=== PATIENT | female | born 1955 | race African-American/Black ===

== ENCOUNTER → 2016-08-22 | Outpatient (CLI) | payer MEDICARE ==
[2014-08-02 11:00] VITALS: BP 139/65
[~2016-08-22] MED LIST: ASPI325T4 PO; LISI10TA2 PO; OXYC-323 PO; SIMV20TA3 PO; TRAZ100T12 PO; non
--- NOTE | 2016-08-22 09:09 | RAD ---
EXAM: DIGITAL SCREEN BILAT W/CAD HISTORY: Screening. COMPARISON: 07/13/2015 and 06/16/2013. This study was interpreted with the benefit of Computerized Aided Detection (CAD). The breast parenchyma is primarily fatty replaced. Breast parenchyma level density A. FINDINGS: No dominant suspicious mass, suspicious microcalcifications, or architectural distortion is identified. IMPRESSION: No evidence of malignancy. BI-RADS CATEGORY: 1 NEGATIVE RECOMMENDED FOLLOW-UP: 12M 12 MONTH FOLLOW-UP PQRS compliance statement: Patient information was entered into a reminder system with a target due date for the next mammogram. Mammography is a sensitive method for finding small breast cancers, but it does not detect them all and is not a substitute for careful clinical examination. A negative mammogram does not negate a clinically suspicious finding and should not result in delay in biopsying a clinically suspicious abnormality. "Our facility is accredited by the [employer]ography [employer]."
== END | disposition home or self-care (01) ==
LOC: MAMMO 08:23
PROVIDERS: ATTEND Family Medicine
DX: Z12.31 Encounter for screening mammogram for malignant neoplasm of breast (principal)
CPT/HCPCS: G0202; 77067

== ENCOUNTER → 2016-11-12 | Outpatient (CLI) | payer MEDICARE ==
[2014-08-02 11:00] VITALS: BP 139/65
[~2016-11-12] MED LIST changes: -ASPI325T4 PO; +ASPI325T8 PO
--- NOTE | 2016-11-12 09:50 | RAD ---
Chest, 2 views, 11/12/2016: History: Suspected mold exposure Comparison is made to a study from 05/27/2012. The heart size is normal. There is mild tortuosity and calcific plaquing the thoracic aorta. The pulmonary vascularity is normal. No pulmonary infiltrates are seen. There is no evidence of pleural fluid. Minimal spurring is present in the spine. IMPRESSION: No acute cardiopulmonary abnormality is detected.
== END | disposition home or self-care (01) ==
LOC: RAD 08:25
PROVIDERS: ATTEND Family Medicine
DX: Z77.120 Contact with and (suspected) exposure to mold (toxic) (principal)
CPT/HCPCS: 71020

== ENCOUNTER 2017-03-24 11:48 | Emergency (ER) | payer BC, MEDICARE ==
[2017-03-24] MEDS ORDERED: KETOROLAC 30 MG/ML INJ. IV (12:15)
[2017-03-24 12:35] LABS: ADD MAN DIFF? NO
[2017-03-24] MEDS: KETOROLAC 30 MG/ML INJ. IV (12:41)
[2017-03-24 12:42] LABS: BASO % 1 % (0-3); EOS # 0.3 x10^3/uL (0.0-0.7); EOS % 3 % (0-3); HEMATOCRIT 43.4 % (36.0-47.0); HEMOGLOBIN 14.5 g/dL (12.0-15.5); LYMPH # 2.6 x10^3/uL (1.0-4.8); LYMPH % 31 % (24-48); MEAN CORPUSCULAR HEMOGLOBIN 30 pg (25-35); MEAN CORPUSCULAR HGB CONC 33 g/dL (31-37); MEAN CORPUSCULAR VOLUME 88 fL (79-100); MONO # 0.6 x10^3/uL (0.0-1.1); MONO % 7 % (0-9); NEUT # 4.8 x10^3uL (1.8-7.7); NEUT % 58 % (31-73); PLATELET COUNT 397 x10^3/uL (140-400); RED BLOOD COUNT 4.91 x10^6/uL (3.50-5.40); RED CELL DISTRIBUTION WIDTH 13.4 % (11.5-14.5); WHITE BLOOD COUNT 8.2 x10^3/uL (4.0-11.0)
[2017-03-24] MEDS: ORPHENADRINE CITRATE 60 MG/2 ML VIAL. IV (12:43)
[2017-03-24 12:53] LABS: ANION GAP 10 (6-14); BLOOD UREA NITROGEN 14 mg/dL (7-20); CALCIUM 9.1 mg/dL (8.5-10.1); CARBON DIOXIDE 28 mmol/L (21-32); CHLORIDE 104 mmol/L (98-107); CREATININE 0.8 mg/dL (0.6-1.0); GFR 87.7; GLUCOSE 125 mg/dL (70-99); POTASSIUM 4.1 mmol/L (3.5-5.1); SODIUM 142 mmol/L (136-145)
[2017-03-24] MEDS: oxyCODONE/APAP 10/325 1 TAB TABLET PO (13:24)
== END 2017-03-24 14:08 | disposition home or self-care (01) ==
LOC: ER 11:48
DX: G89.29 Other chronic pain (principal); M54.5 Low back pain; I10 Essential (primary) hypertension; E11.9 Type 2 diabetes mellitus without complications; F12.10 Cannabis abuse, uncomplicated; Z90.710 Acquired absence of both cervix and uterus
CPT/HCPCS: 36415; 72100; 80048; 85025; 96374; 96375; 99285-25; J1885; J2360

== ENCOUNTER → 2017-09-28 | Outpatient (CLI) | payer BC | END | disposition home or self-care (01) | LOC: MAMMO 09:32 | DX: Z12.31 Encounter for screening mammogram for malignant neoplasm of breast (principal); I10 Essential (primary) hypertension; E11.9 Type 2 diabetes mellitus without complications; E78.5 Hyperlipidemia, unspecified; E78.00 Pure hypercholesterolemia, unspecified | CPT/HCPCS: 77067 ==

== ENCOUNTER 2017-12-16 17:28 | Emergency (ER) | payer BC ==
[~2017-12-16] VITALS: Ht 154.9 cm; Wt 106.1 kg
[~2017-12-16 17:28] MED LIST changes: +TRAZ-86 PO; -TRAZ100T12 PO
[2017-12-16 17:54] LABS: BASO # 0.2 x10^3/uL (0.0-0.2); BASO % 1 % (0-3); EOS # 0.2 x10^3/uL (0.0-0.7); EOS % 2 % (0-3); HEMATOCRIT 39.7 % (36.0-47.0); HEMOGLOBIN 13.7 g/dL (12.0-15.5); LYMPH # 5.2 x10^3/uL (1.0-4.8); LYMPH % 35 % (24-48); MEAN CORPUSCULAR HEMOGLOBIN 30 pg (25-35); MEAN CORPUSCULAR HGB CONC 34 g/dL (31-37); MEAN CORPUSCULAR VOLUME 88 fL (79-100); MONO # 0.9 x10^3/uL (0.0-1.1); MONO % 6 % (0-9); NEUT # 8.3 x10^3uL (1.8-7.7); NEUT % 56 % (31-73); PLATELET COUNT 391 x10^3/uL (140-400); RED BLOOD COUNT 4.49 x10^6/uL (3.50-5.40); RED CELL DISTRIBUTION WIDTH 13.5 % (11.5-14.5); WHITE BLOOD COUNT 14.8 x10^3/uL (4.0-11.0)
[2017-12-16] MEDS ORDERED: PANTOPRAZOLE IV PUSH 40 MG VIAL. IVP ONE (18:00)
[2017-12-16] MEDS ORDERED: ASPIRIN 325 MG TABLET PO ONE (18:00)
[2017-12-16] MEDS ORDERED: LIDO:MAALOX 1:1 20 ML SINGLE DOSE. SWSW ONE (18:00)
[2017-12-16] MEDS ORDERED: ONDANSETRON PF 4 MG/2 ML VIAL. IV ONE (18:00)
[2017-12-16 18:13] LABS: CALCIUM 9.1 mg/dL (8.5-10.1); CREATININE 0.8 mg/dL (0.6-1.0); GFR 87.4; POTASSIUM 3.6 mmol/L (3.5-5.1)
[2017-12-16 18:19] LABS: ALBUMIN 3.7 g/dL (3.4-5.0); ALBUMIN/GLOBULIN RATIO 0.9 (1.0-1.7); MAGNESIUM 2.3 mg/dL (1.8-2.4); TOTAL BILIRUBIN 0.3 mg/dL (0.2-1.0); TOTAL PROTEIN 7.9 g/dL (6.4-8.2)
--- NOTE | 2017-12-16 18:46 | EKG ---
[facility] [address] [place] [id number] Test Date: 2017-12-16 Test Time: 18:42:48 Pat Name: EMILE ZHOU Department: Room: Gender: F Professor Of Geography: : 1955 Requested By: GILBERTO BAUTISTA Order Number: [id number] Reading MD: Measurements Intervals [place] Rate: 103 P: 0 LA: 118 QRS: 24 QRSD: 86 T: 37 QT: 344 QTc: 453 Interpretive Statements SINUS TACHYCARDIA QRS(T) CONTOUR ABNORMALITY CONSIDER ANTEROSEPTAL MYOCARDIAL DAMAGE POSSIBLY ABNORMAL ECG RI6.01 No previous ECG available for comparison
[2017-12-16 19:00] VITALS: BP 136/73
[2017-12-16 19:17] LABS: BILIRUBIN,URINE NEGATIVE (NEG); CLARITY,URINE CLEAR; COLOR,URINE YELLOW; NITRITE,URINE NEGATIVE (NEG); PH,URINE 6.5; PROTEIN,URINE NEGATIVE (NEG-TRACE); UROBILINOGEN,URINE 0.2 mg/dL (0.2 mg/dL)
[2017-12-16 19:24] LABS: BARBITURATES NEG (NEG); BENZODIAZEPINES NEG (NEG); CANNABINOIDS POS (NEG); COCAINE NEG (NEG); METHADONE NEG (NEG); OPIATES NEG (NEG); PHENCYCLIDINE NEG (NEG)
[2017-12-16 19:27] LABS: AMPHETAMINE/METHAMPHETAMINE NEG (NEG)
[2017-12-16 19:47] LABS: BACTERIA,URINE FEW /HPF (0-FEW); RBC,URINE 0 /HPF (0-2); SQUAMOUS EPITHELIAL CELL,UR MOD /LPF; WBC,URINE 0 /HPF (0-4)
[2017-12-16] MEDS ORDERED: ALPR0.25 PO (20:45)
--- NOTE | 2017-12-16 20:45 | PHYS DOC ---
Past Medical History Past Medical History: Bronchitis, Diabetes-Type II, Hypertension, Other Additional Past Medical Histor: Sleep Apnea Past Surgical History: Cholecystectomy, Hysterectomy, Tonsillectomy, Other Additional Past Surgical Histo: R)knee Alcohol Use: None Drug Use: Marijuana Adult General Chief Complaint Chief Complaint: CHEST PAIN HPI HPI Patient is a 62 year old female who presents with hx of HTN, DM II who presents today complaining of chest pain that has been going on for 20 years after his son , patient states the pain is been coming and going since then. She states the pain is 7 out of 10 described as sharp mostly of the epigastric region radiating to her back. Patient denies taking anything to relieve her pain. She states she believes she has anxiety. She states she is not on anything for anxiety. Review of Systems Review of Systems Constitutional: Denies fever or chills [] Eyes: Denies change in visual acuity, redness, or eye pain [] HENT: Denies nasal congestion or sore throat [] Respiratory: Denies cough or shortness of breath [] Cardiovascular: Reports chest pain GI: Denies abdominal pain, nausea, vomiting, bloody stools or diarrhea [] : Denies dysuria or hematuria [] Musculoskeletal: Denies back pain or joint pain [] Integument: Denies rash or skin lesions [] Neurologic: Denies headache, focal weakness or sensory changes [] Psych:reports anxiety. All other systems were reviewed and found to be within normal limits, except as documented in this note. Current Medications Current Medications Current Medications Medications (Trade) Dose Ordered Sig/Cole Start Time Stop Time Status Last Admin Dose Admin Aspirin (Bobby Aspirin) 325 mg 1X ONCE 12/16/17 18:00 12/16/17 18:01 DC 12/16/17 18:07 325 MG Multi-Ingredient Mouthwash/Gargle (Gi Cocktail) 20 ml 1X ONCE 12/16/17 18:00 12/16/17 18:01 DC 12/16/17 18:07 20 ML Ondansetron HCl (Zofran) 4 mg 1X ONCE 12/16/17 18:00 12/16/17 18:01 DC 12/16/17 18:07 4 MG Pantoprazole Sodium (PROTONIX VIAL for IV PUSH) 40 mg 1X ONCE 12/16/17 18:00 12/16/17 18:01 DC 12/16/17 18:07 40 MG Allergies Allergies Allergies Coded Allergies Type Severity Reaction Last Updated Verified atorvastatin Allergy Unknown 03/24/17 Yes Physical Exam Physical Exam Constitutional: Well developed, well nourished, no acute distress, non-toxic appearance. [] HENT: Normocephalic, atraumatic, bilateral external ears normal, oropharynx moist, no oral exudates, nose normal. [] Eyes: PERRLA, EOMI, conjunctiva normal, no discharge. [] Neck: Normal range of motion, no tenderness, supple, no stridor. [] Cardiovascular:Heart rate regular rhythm, no murmur [] Lungs & Thorax: Bilateral breath sounds clear to auscultation [] Abdomen: Bowel sounds normal, soft, no tenderness, no masses, no pulsatile masses. [] Skin: Warm, dry, no erythema, no rash. [] Back: No tenderness, no CVA tenderness. [] Extremities: No tenderness, no cyanosis, no clubbing, ROM intact, no edema. [] Neurologic: Alert and oriented X 3, normal motor function, normal sensory function, no focal deficits noted. [] Psychologic: Affect normal, judgement normal, mood normal. [] Current Patient Data Vital Signs Vital Signs Date Time Temp Pulse Resp B/P (MAP) Pulse Ox O2 Delivery O2 Flow Rate FiO2 12/16/17 18:00 75 26 122/71 (88) 96 Room Air 12/16/17 17:33 98.3 98.3 Lab Values Laboratory Tests Test 12/16/17 17:40 12/16/17 18:51 White Blood Count 14.8 x10^3/uL (4.0-11.0) H Red Blood Count 4.49 x10^6/uL (3.50-5.40) Hemoglobin 13.7 g/dL (12.0-15.5) Hematocrit 39.7 % (36.0-47.0) Mean Corpuscular Volume 88 fL (79-100) Mean Corpuscular Hemoglobin 30 pg (25-35) Mean Corpuscular Hemoglobin Concent 34 g/dL (31-37) Red Cell Distribution Width 13.5 % (11.5-14.5) Platelet Count 391 x10^3/uL (140-400) Neutrophils (%) (Auto) 56 % (31-73) Lymphocytes (%) (Auto) 35 % (24-48) Monocytes (%) (Auto) 6 % (0-9) Eosinophils (%) (Auto) 2 % (0-3) Basophils (%) (Auto) 1 % (0-3) Neutrophils # (Auto) 8.3 x10^3uL (1.8-7.7) H Lymphocytes # (Auto) 5.2 x10^3/uL (1.0-4.8) H Monocytes # (Auto) 0.9 x10^3/uL (0.0-1.1) Eosinophils # (Auto) 0.2 x10^3/uL (0.0-0.7) Basophils # (Auto) 0.2 x10^3/uL (0.0-0.2) D-Dimer (Princess) 0.48 ug/mlFEU (0.00-0.50) Sodium Level 144 mmol/L (136-145) Potassium Level 3.6 mmol/L (3.5-5.1) Chloride Level 103 mmol/L (98-107) Carbon Dioxide Level 32 mmol/L (21-32) Anion Gap 9 (6-14) Blood Urea Nitrogen 12 mg/dL (7-20) Creatinine 0.8 mg/dL (0.6-1.0) Estimated GFR (Cockcroft-Gault) 87.4 BUN/Creatinine Ratio 15 (6-20) Glucose Level 100 mg/dL (70-99) H Calcium Level 9.1 mg/dL (8.5-10.1) Magnesium Level 2.3 mg/dL (1.8-2.4) Total Bilirubin 0.3 mg/dL (0.2-1.0) Aspartate Amino Transferase (AST) 14 U/L (15-37) L Alanine Aminotransferase (ALT) 27 U/L (14-59) Alkaline Phosphatase 68 U/L (46-116) Troponin I Quantitative < 0.017 ng/mL (0.000-0.055) RZ-Akg-I-Type Natriuretic Peptide 147 pg/mL (0-124) H Total Protein 7.9 g/dL (6.4-8.2) Albumin 3.7 g/dL (3.4-5.0) Albumin/Globulin Ratio 0.9 (1.0-1.7) L Lipase 194 U/L (73-393) Thyroid Stimulating Hormone (TSH) 2.002 uIU/mL (0.358-3.74) Urine Collection Type Unknown Urine Color Yellow Urine Clarity Clear Urine pH 6.5 Urine Specific [place] 1.015 Urine Protein Negative mg/dL (NEG-TRACE) Urine Glucose (UA) Negative mg/dL (NEG) Urine Ketones (Stick) Negative mg/dL (NEG) Urine Blood Negative (NEG) Urine Nitrite Negative (NEG) Urine Bilirubin Negative (NEG) Urine Urobilinogen Dipstick 0.2 mg/dL (0.2 mg/dL) Urine Leukocyte Esterase Negative (NEG) Urine RBC 0 /HPF (0-2) Urine WBC 0 /HPF (0-4) Urine Squamous Epithelial Cells Mod /LPF Urine Bacteria Few /HPF (0-FEW) Urine Mucus Mod /LPF Urine Opiates Screen Neg (NEG) Urine Methadone Screen Neg (NEG) Urine Barbiturates Neg (NEG) Urine Phencyclidine Screen Neg (NEG) Urine Amphetamine/Methamphetamine Neg (NEG) Urine Benzodiazepines Screen Neg (NEG) Urine Cocaine Screen Neg (NEG) Urine Cannabinoids Screen Pos (NEG) Urine Ethyl Alcohol Neg (NEG) Laboratory Tests 12/16/17 17:40 Laboratory Tests 12/16/17 17:40 EKG EKG Interpreted by Dr. Larson sinus rhythm HR 83 no STEMI[] Radiology/Procedures Radiology/Procedures [] Course & Med Decision Making Course & Med Decision Making Pertinent Labs and Imaging studies reviewed. (See chart for details) This is a 62-year-old female patient presenting to the ED today with chest pain for 20 is worse in the last couple days. Cardiac workup is negative. Patient was also complaining of anxiety. She was given GI cocktail in the ED, given an aspirin. She states she is feeling better and would like to go home with something for anxiety. Gave her RX for Xanax 0.25 mg. Follow-up with PCP and hand almond blancher in the next 2-7 days. Heart score 3 Dragon Disclaimer Dragon Disclaimer This electronic medical record was generated, in whole or in part, using a voice recognition dictation system. Departure Departure Impression: Primary Impression: Chest pain Additional Impression: Anxiety Disposition: HOME, SELF-CARE Condition: STABLE Referrals: CHRISTY BARBOZA MD (PCP) follow up in 2 days ROSANNA JARAMILLO MD follow up in 2 days Patient Instructions: Chest Pain (Nonspecific)-Brief Additional Instructions: You were evaluated in the emergency room for chest pain and anxiety. Please take the prescribed medications as needed for anxiety. Follow-up with your own doctor in the next 2-3 days. Also follow-up with the hand almond blancher provided. Come back to the emergency room at any point symptoms worsen. Scripts Alprazolam (XANAX) 0.25 Mg Tablet 1 TAB PO TID PRN PRN for ANXIETY / AGITATION, #15 TAB Prov: GILBERTO BAUTISTA APRN 12/16/17 Problem Qualifiers Primary Impression: Chest pain Chest pain type: unspecified Qualified Codes: R07.9 - Chest pain, unspecified GILBERTO BAUTISTA APRN Dec 16, 2017 20:45
--- NOTE | 2017-12-16 22:46 | RAD ---
PORTABLE CHEST 1V Clinical Indication: ER PATIENT. MID-STERNAL ATRAUMATIC CHEST PAIN, PRODUCTIVE COUGH WITH YELLOW SPUTUM. Hx HTN, DIABETES, BRONCHITIS. Comparison: Two-view chest November 12, 2016. Findings: Tortuous and atherosclerotic thoracic aorta. Cardiac size is normal. Question tiny calcified granuloma left lung apex. Lungs are clear. There is no pneumothorax. No pleural effusion is appreciated. No acute bone abnormality. IMPRESSION: No acute cardiopulmonary process. Electronically signed by: Fernando Wright MD (12/16/2017 10:42 PM) [facility]
== END 2017-12-16 21:09 | disposition home or self-care (01) ==
LOC: ER 17:28
DX: R07.89 Other chest pain (principal); F41.9 Anxiety disorder, unspecified; R10.13 Epigastric pain; I10 Essential (primary) hypertension; E11.9 Type 2 diabetes mellitus without complications; Z90.49 Acquired absence of other specified parts of digestive tract; Z90.710 Acquired absence of both cervix and uterus; Z91.041 Radiographic dye allergy status
CPT/HCPCS: 36415; 71045; 80053; 80307; 81001; 83690; 83735; 83880; 84443; 84484; 85025; 85379; 93005; 96374; 96375; 99285; C9113; J2405; G0479

== ENCOUNTER → 2018-02-17 | Outpatient (CLI) | payer BC ==
[~2018-02-17] MED LIST changes: +ALPR0.25 PO; -OXYC-323 PO; +OXYC1TAB15 PO
--- NOTE | 2018-02-17 17:05 | RAD ---
Bilateral lower extremity arterial ultrasound, 02/17/2018: HISTORY: Leg cramps Duplex evaluation of the major arteries in both lower extremities was performed including grayscale, color-flow and spectral Doppler analysis. There are mild scattered atherosclerotic plaques bilaterally. The common femoral, superficial femoral and popliteal arteries demonstrate good triphasic waveforms bilaterally. No significant focal velocity acceleration is seen to suggest significant stenosis. Patent anterior tibial, posterior tibial and peroneal arteries are present in both lower legs, all demonstrating triphasic Doppler waveforms. The dorsalis pedis arteries in both feet are patent with triphasic Doppler waveforms. IMPRESSION: Mild scattered atherosclerotic plaquing with no duplex evidence of significant arterial occlusive disease in either lower extremity. Electronically signed by: Josef Murguia MD (02/17/2018 5:01 PM) [facility]
== END | disposition home or self-care (01) ==
LOC: US 14:06
PROVIDERS: ATTEND Podiatrist
DX: I70.203 Unspecified atherosclerosis of native arteries of extremities, bilateral legs (principal)
CPT/HCPCS: 93925

== ENCOUNTER 2018-06-10 12:13 | Emergency (ER) | payer BC ==
[~2018-06-10] VITALS: Ht 154.9 cm; Wt 106.1 kg
[2018-06-10 12:46] VITALS: BP 173/90
[2018-06-10] MEDS ORDERED: KETOROLAC 60 MG/2 ML VIAL. IM ONE (13:00)
--- NOTE | 2018-06-10 13:27 | PHYS DOC ---
Past Medical History Past Medical History: Bronchitis, Diabetes-Type II, Hypertension, Other Additional Past Medical Histor: Sleep Apnea Past Surgical History: Cholecystectomy, Hysterectomy, Tonsillectomy, Other Additional Past Surgical Histo: R)knee Alcohol Use: None Drug Use: Marijuana Adult General Chief Complaint Chief Complaint: Neck Pain [facility] HPI Patient is a 62 year old female who presents with left neck pain 2 days. The patient states that she woke up 2 days ago with this pain. She denies any injury. She denies headache or stiffness to her cervical spine. She has tried [id number] pain relievers with little relief. Review of Systems Review of Systems Constitutional: Denies fever or chills [] Respiratory: Denies cough or shortness of breath [] Cardiovascular: No additional information not addressed in HPI [] GI: Denies abdominal pain, nausea, vomiting, bloody stools or diarrhea [] : Denies dysuria or hematuria [] Musculoskeletal: See history of present illness Integument: Denies rash or skin lesions [] Neurologic: Denies headache, focal weakness or sensory changes [] Endocrine: Denies polyuria or polydipsia [] All other systems were reviewed and found to be within normal limits, except as documented in this note. Current Medications Current Medications Current Medications Medications (Trade) Dose Ordered Sig/Cole Start Time Stop Time Status Last Admin Dose Admin Ketorolac Tromethamine (Toradol Im) 60 mg 1X ONCE 06/10/18 13:00 06/10/18 13:01 DC 06/10/18 13:03 60 MG Allergies Allergies Allergies Coded Allergies Type Severity Reaction Last Updated Verified atorvastatin Allergy Unknown 03/24/17 Yes Physical Exam Physical Exam Constitutional: Well developed, well nourished, no acute distress, non-toxic appearance. [] HENT: Normocephalic, atraumatic, bilateral external ears normal, oropharynx moist, no oral exudates, nose normal. [] Eyes: PERRLA, EOMI, conjunctiva normal, no discharge. [] Neck: Normal range of motion, tenderness to left trapezius, supple, no stridor. [] Cardiovascular:Heart rate regular rhythm, no murmur [] Lungs & Thorax: Bilateral breath sounds clear to auscultation [] Abdomen: Bowel sounds normal, soft, no tenderness, no masses, no pulsatile masses. [] Skin: Warm, dry, no erythema, no rash. [] Back: No point spinal tenderness, no CVA tenderness. [] Extremities: No tenderness, no cyanosis, no clubbing, ROM intact, no edema. [] Neurologic: Alert and oriented X 3, normal motor function, normal sensory function, no focal deficits noted. [] Psychologic: Affect normal, judgement normal, mood normal. [] Current Patient Data Vital Signs Vital Signs Date Time Temp Pulse Resp B/P (MAP) Pulse Ox O2 Delivery O2 Flow Rate FiO2 06/10/18 12:46 98.2 91 20 173/90 (117) 99 Room Air 98.2 EKG EKG [] Radiology/Procedures Radiology/Procedures [] Course & Med Decision Making Course & Med Decision Making Pertinent Labs and Imaging studies reviewed. (See chart for details) [] Dragon Disclaimer Dragon Disclaimer This electronic medical record was generated, in whole or in part, using a voice recognition dictation system. Departure Departure Impression: Primary Impression: Trapezius muscle strain Disposition: HOME, SELF-CARE Condition: STABLE Referrals: CHRISTY BARBOZA MD (PCP) Patient Instructions: Muscle Strain Additional Instructions: You may use ibuprofen or Tylenol for pain control. Follow-up with your primary care provider in 3 days if not improving or return to the emergency department if worsening. JEANNA SANDOVAL APRN Jun 10, 2018 13:27
== END 2018-06-10 13:40 | disposition home or self-care (01) ==
LOC: ER 12:13
DX: S46.812A Strain of other muscles, fascia and tendons at shoulder and upper arm level, left arm, initial encounter (principal); I10 Essential (primary) hypertension; E11.9 Type 2 diabetes mellitus without complications; Z88.8 Allergy status to other drugs, medicaments and biological substances; X58.XXXA Exposure to other specified factors, initial encounter; Y93.89 Activity, other specified; Y92.89 Other specified places as the place of occurrence of the external cause; Y99.8 Other external cause status
CPT/HCPCS: 96372; 99283; J1885

== ENCOUNTER 2018-08-21 01:40 | Emergency (ER) | payer BC, SELFPAY ==
[~2018-08-21] VITALS: Ht 154.9 cm; Wt 107.5 kg
[2018-08-21] MEDS ORDERED: DEXAMETHASONE 4 MG TABLET PO ONE (02:15)
[2018-08-21] MEDS ORDERED: IPRATRPIUM/ALBUTEROL 0.5/2.5MG 3 ML NEBU. NEB ONE (02:15)
[2018-08-21] MEDS ORDERED: BENZ100C PO (03:13)
[2018-08-21] MEDS ORDERED: PRED20TA PO (03:13)
[2018-08-21] MEDS ORDERED: AZIT250T PO (03:13)
[2018-08-21] MEDS ORDERED: ALBU2.5V8 INH (03:13)
--- NOTE | 2018-08-21 03:13 | PHYS DOC ---
Past Medical History Past Medical History: Bronchitis, Diabetes-Type II, High Cholesterol, Hyp ertension, [place], Other Additional Past Medical Histor: Sleep Apnea Past Surgical History: Cholecystectomy, Hysterectomy, Tonsillectomy, Other Additional Past Surgical Histo: R)knee Alcohol Use: None Drug Use: Marijuana Adult General Chief Complaint Chief Complaint: COUGH HPI HPI Patient is a 62 year old [f__sex] who presents with [] Review of Systems Review of Systems Constitutional: Denies fever or chills [] Eyes: Denies change in visual acuity, redness, or eye pain [] HENT: Denies nasal congestion or sore throat [] Respiratory: Denies cough or shortness of breath [] Cardiovascular: No additional information not addressed in HPI [] GI: Denies abdominal pain, nausea, vomiting, bloody stools or diarrhea [] : Denies dysuria or hematuria [] Musculoskeletal: Denies back pain or joint pain [] Integument: Denies rash or skin lesions [] Neurologic: Denies headache, focal weakness or sensory changes [] Endocrine: Denies polyuria or polydipsia [] All other systems were reviewed and found to be within normal limits, except as documented in this note. Current Medications Current Medications Current Medications Medications (Trade) Dose Ordered Sig/Cole Start Time Stop Time Status Last Admin Dose Admin Albuterol/ Ipratropium (Duoneb) 3 ml 1X ONCE 08/21/18 02:15 08/21/18 02:16 DC 08/21/18 02:48 3 ML Dexamethasone (Decadron) 10 mg 1X ONCE 08/21/18 02:15 08/21/18 02:16 DC 08/21/18 02:46 10 MG Allergies Allergies Allergies Coded Allergies Type Severity Reaction Last Updated Verified atorvastatin Allergy Unknown 03/24/17 Yes Physical Exam Physical Exam Constitutional: Well developed, well nourished, no acute distress, non-toxic appearance. [] HENT: Normocephalic, atraumatic, bilateral external ears normal, oropharynx moist, no oral exudates, nose normal. [] Eyes: PERRLA, EOMI, conjunctiva normal, no discharge. [] Neck: Normal range of motion, no tenderness, supple, no stridor. [] Cardiovascular:Heart rate regular rhythm, no murmur [] Lungs & Thorax: Bilateral breath sounds clear to auscultation [] Abdomen: Bowel sounds normal, soft, no tenderness, no masses, no pulsatile masses. [] Skin: Warm, dry, no erythema, no rash. [] Back: No tenderness, no CVA tenderness. [] Extremities: No tenderness, no cyanosis, no clubbing, ROM intact, no edema. [] Neurologic: Alert and oriented X 3, normal motor function, normal sensory function, no focal deficits noted. [] Psychologic: Affect normal, judgement normal, mood normal. [] Current Patient Data Vital Signs Vital Signs Date Time Temp Pulse Resp B/P (MAP) Pulse Ox O2 Delivery O2 Flow Rate FiO2 08/21/18 02:49 99 Room Air 08/21/18 01:48 98.7 106 18 171/73 (105) 98.7 EKG EKG [] Radiology/Procedures Radiology/Procedures [] Course & Med Decision Making Course & Med Decision Making Pertinent Labs and Imaging studies reviewed. (See chart for details) [] Dragon Disclaimer Dragon Disclaimer This electronic medical record was generated, in whole or in part, using a voice recognition dictation system. Departure Departure Impression: Primary Impression: Bronchitis Additional Impression: Otalgia of both ears Disposition: HOME, SELF-CARE Condition: STABLE Referrals: CHRISTY BARBOZA MD (PCP) Patient Instructions: Acute Bronchitis, [id number], Otalgia Scripts Benzonatate (TESSALON PERLE) 100 Mg Capsule 1 CAP PO TID PRN for COUGH, #21 CAP Prov: CHRISTY HILL DO 08/21/18 Azithromycin (ZITHROMAX) 250 Mg Tablet 1 PKG PO UD, #6 TAB Take 2 tablets on day 1 and then 1 tablet each day for the next 4 days as directed Prov: CHRISTY HILL DO 08/21/18 Prednisone (PREDNISONE) 20 Mg Tablet 2 TAB PO DAILY, #8 TAB Start this prescription tomorrow, 08/22/18 Prov: CHRISTY HILL DO 08/21/18 Albuterol Sulfate (Proair Hfa) 8.5 Gm Hfa.aer.ad 1 PUFF INH PRN Q6HRS PRN for WHEEZING, #1 INHALER Prov: CHRISTY HILL DO 08/21/18 Problem Qualifiers CHRISTY HILL DO Aug 21, 2018 03:13
[2018-08-21 03:26] VITALS: BP 147/76
--- NOTE | 2018-08-21 08:06 | RAD ---
Chest, PA and Lateral: Technique: PA and lateral views of the chest were obtained. History: Cough. Comparison: 12/16/2017. Findings: The heart and pulmonary vasculature appear within normal limits. The lungs are clear. The pleural margins are clear. Impression: No acute chest process is seen. Electronically signed by: Andre Valle MD (08/21/2018 8:04 AM) [facility]
== END 2018-08-21 03:27 | disposition home or self-care (01) ==
LOC: ER 01:40
DX: J40 Bronchitis, not specified as acute or chronic (principal); H92.03 Otalgia, bilateral; E11.9 Type 2 diabetes mellitus without complications; E78.00 Pure hypercholesterolemia, unspecified; I25.2 Old myocardial infarction; I10 Essential (primary) hypertension; Z90.49 Acquired absence of other specified parts of digestive tract; Z90.710 Acquired absence of both cervix and uterus; Z90.89 Acquired absence of other organs; Z88.8 Allergy status to other drugs, medicaments and biological substances
CPT/HCPCS: 71046; 94640; 99284; J7620; J8540

== ENCOUNTER → 2018-10-11 | Outpatient (CLI) | payer OTHER ==
[~2018-10-11] MED LIST changes: +ALBU2.5V8 INH; +AZIT250T PO; +BENZ100C PO; +PRED20TA PO
--- NOTE | 2018-10-11 09:58 | RAD ---
Examination: 2 views of the right knee and 2 views of the lumbar spine HISTORY: History of osteoarthritis COMPARISON: Lumbar spine radiograph from 03/24/2017. FINDINGS: Moderate joint space loss identified in the medial, lateral, patellofemoral compartments. Moderate-sized osteophyte formation identified. The lumbar vertebral body heights are maintained. Moderate intervertebral disc height loss identified in the lumbar spine likely degeneration. L4 probable spondylolysis. IMPRESSION: 1. Moderate tricompartmental degenerative changes right knee. 2. Moderate degenerative changes lumbar spine. Electronically signed by: Andre Valle MD (10/11/2018 9:55 AM) [place] [id number]
== END | disposition home or self-care (01) ==
LOC: RAD 09:00
PROVIDERS: ATTEND Family Medicine
DX: M17.11 Unilateral primary osteoarthritis, right knee (principal); M47.816 Spondylosis without myelopathy or radiculopathy, lumbar region; M25.78 Osteophyte, vertebrae; E66.9 Obesity, unspecified; I10 Essential (primary) hypertension; E11.9 Type 2 diabetes mellitus without complications; E78.5 Hyperlipidemia, unspecified; G89.29 Other chronic pain
CPT/HCPCS: 72100; 73560

== ENCOUNTER → 2018-12-22 | Outpatient (CLI) | payer BC ==
[~2018-12-22] MED LIST changes: +SIMV20TA18 PO; -SIMV20TA3 PO
--- NOTE | 2018-12-23 18:21 | RAD ---
DATE: 12/22/2018 EXAM: MAMMO COLE SCREENING BILATERAL HISTORY: Routine screening COMPARISON: 09/28/2017, 08/22/2016 mammographic exams This study was interpreted with the benefit of Computerized Aided Detection (CAD). Breast Density: SCATTERED The breast parenchyma shows scattered fibroglandular densities. Breast parenchyma level B. FINDINGS: No suspicious mass, calcification, or distortion. IMPRESSION: Stable BI-RADS CATEGORY: 1 NEGATIVE RECOMMENDED FOLLOW-UP: 12M 12 MONTH FOLLOW-UP PQRS compliance statement: Patient information was entered into a reminder system with a target due date in one year for the next mammogram. Mammography is a sensitive method for finding small breast cancers, but it does not detect them all and is not a substitute for careful clinical examination. A negative mammogram does not negate a clinically suspicious finding and should not result in delay in biopsying a clinically suspicious abnormality. "Our facility is accredited by the [employer] Mammography [employer]."
== END | disposition home or self-care (01) ==
LOC: MAMMO 07:48
PROVIDERS: ATTEND Family Medicine
DX: N64.89 Other specified disorders of breast (principal); Z12.31 Encounter for screening mammogram for malignant neoplasm of breast
CPT/HCPCS: 77063; 77067

== ENCOUNTER → 2019-09-06 | Outpatient (CLI) | payer MEDICARE ==
[2019-07-07 11:14] VITALS: BP 157/83
[~2019-09-06] MED LIST changes: +NITR0.4T24 SL; +REGADENOSON 0.4 MG/5 ML DISP.SYRIN. IV ONE; +TRAZ-123 PO; -TRAZ-86 PO
--- NOTE | 2019-09-07 10:38 | RAD ---
MR#: [id number] Date of Study: 09/06/2019 Ordering Physician: DUSTIN RUEDA, Referring Physician: DEWAYNE DURON Tech: RT Teetee Cleary) (N) APPROVED REPORT Test Type: Pharmacological Stress Nurse/Tech: RT Casper ([place]) (N) Test Indications: chest pain 1 month ago Cardiac History: none Medications: see EHR Medical History: hypertension, diabetic Resting ECG: sinus rhythm Resting Heart Rate: 76 bpm Resting Blood Pressure: 136/74mmHg Nurse/Tech Notes Consent: The procedure was explained to the patient in lay terms. Informed consent was witnessed. Randal eout was entered into hhgregg. History and Stress Test performed by RT Madiha ([place]) (N) Pharm. Details Pharmacologic stress testing was performed using 0.4mg per 5ml of regadenoson given intravenously ove r 7-10 seconds. POST EXERCISE Reason for Termination: Infusion complete Max HR: 112 bpm Max Blood Pressure: 121/70mmHg INTERPRETATION Stress EKG Conclusion: Baseline EKG showed sinus rhythm. No ischemic changes at peak stress. No arr hythmias. Imaging Protocol IMAGE PROTOCOL: Rest Tc-99m/stress Tc-99m 2 days Rest: Stress: Viability: Radiopharm.Tc99m OjxxxipebXp69s Sestamibi Dose28.5mCi 31mCi Duration 15min. 15min. Img Date 09/06/2019 09/07/2019 Inj-Img Klvk26pms. 60min. Rest Admin Site:IV - Right AntecubitalAdministrator:RT Madiha (R)(N) Stress Admin Site: IV - Right AntecubitalAdministrator: RT Teetee Shirley)(N) STRESS DATA End Diast. Vol.71.0mlAv. Heart Rate86.0bpm End Syst. Vol.20.0mlCO Index BSA0.0L/min Myocardial Bdzp372.0gEject. Kwupymjn76.0% Stress Rates Pk. Fill Rate3.48EDV/secLVtime Pk. Fill 175.38msec Pk. Empty Rate4.62ESV/secLVtime Pk. Fldtl096.83msec 1/3 Pk. Fill1.10EDV/sec Stress Scores Regional WT0.00Summed WT0.00 Regional WM0.00Summed WM9.00 Study quality was good. Left Ventricular size was Normal at Rest and Stress. Lung uptake was . Left Ventricular ejection fraction is 71%. The rest and stress images show normal perfusion, normal contraction and thickening. LV Perf. Quant 17 Seg. SSS2.00 17 Seg. SRS8.00 17 Seg. SDS0.00 Stress Defect Extent (% LAD)0.00Rest Defect Extent (% LAD)3.10Rev. Defect Extent (% LAD)0.00 Stress Defect Extent (% LCX) 13.80Rest Defect Extent (% LCX)23.80Rev. Defect Extent (% LCX)0.00 Stress Defect Extent (% RCA)0.00Rest Defect Extent (% RCA)0.00Rev. Defect Extent (% RCA)0.00 Stress Defect Extent (% KATLIN)3.30Rest Defect Extent (% KATLIN)10.40Rev. Defect Extent (% KATLIN)0.00 Conclusion 1. Regadenoson cardioisotope stress test did not show any evidence of ischemia or infarct. 2. Normal left ventricular systolic function with ejection fraction calculated at 71%. 3. Low risk for cardiac events. Signed by : Kehinde Angeles, Electronically Approved : 09/07/2019 10:38:39
== END | disposition home or self-care (01) ==
LOC: NM 09:39
PROVIDERS: ATTEND Internal Medicine Cardiovascular Disease
DX: R07.9 Chest pain, unspecified (principal); I51.7 Cardiomegaly; I10 Essential (primary) hypertension; E11.9 Type 2 diabetes mellitus without complications
CPT/HCPCS: 78452; A9500; J2785

== ENCOUNTER → 2019-09-07 | Outpatient (CLI) | payer MEDICARE ==
[2019-07-07 11:14] VITALS: BP 157/83
[~2019-09-07] MED LIST changes: -REGADENOSON 0.4 MG/5 ML DISP.SYRIN. IV ONE
--- NOTE | 2019-09-07 10:13 | CARD ---
MR#: [id number] Date of Study: 09/07/2019 Ordering Physician: DUSTIN RUEDA, Referring Physician: DUSTIN RUEDA, Tech: Carmel Briggs APPROVED REPORT EXAM: Two-dimensional and M-mode echocardiogram with Doppler and color Doppler. Other Information Quality : AverageHR: 92bpm Technically limited study due to body habitus. INDICATION Chest Pain RISK FACTORS Hypertension Diabetes 2D DIMENSIONS Left Atrium(2D)2.8 (1.6-4.0cm)IVSd1.2 (0.7-1.1cm) Aortic Root(2D)2.8 (2.0-3.7cm)LVDd4.3 (3.9-5.9cm) LVOT Diameter2.2 (1.8-2.4cm)PWd1.2 (0.7-1.1cm) LVDs2.5 (2.5-4.0cm)FS (%) 41.1 % SV58.8 mlLVEF(%)72.3 (>50%) Aortic Valve AoV Peak Gato.145.6cm/sAoV VTI29.7cm AO Peak GR.8.5mmHgLVOT Peak Gato.123.2cm/s LVOT VTI 21.72cmAO Mean GR.5mmHg DESHAUN (VMAX)2.43lc2SCD (VTI)2.89cm2 Mitral Valve MV E Wvynpzna54.4cm/sMV A Klfoxvur18.9cm/s MV E Mean Gr.2mmHgE/A Ratio0.7 TDI E/Lateral E'6.4E/Medial E'9.0 Pulmonary Valve PV Peak Isezwylc564.6cm/sPV Peak Grad.5mmHg Tricuspid Valve TR P. Amamprld386yd/sRAP HGLSNZEQ7nmSz TR Peak Gr.96tiMoLAGD40fqYo Pulmonary Vein S1 Mrxlzuug32.2cm/sD2 Czzeltfq99.1cm/s PVa [id number] LEFT VENTRICLE The left ventricle is normal size. There is mild concentric left ventricular hypertrophy. The left ve ntricular systolic function is normal. The Ejection Fraction is 60-65%. There is normal LV segmental wall motion. Transmitral Doppler flow pattern is Grade I-abnormal relaxation pattern. RIGHT VENTRICLE The right ventricle is normal size. There is normal right ventricular wall thickness. The right ventr icular systolic function is normal. ATRIA The left atrium size is normal. The right atrium size is normal. The interatrial septum is intact wit h no evidence for an atrial septal defect or patent foramen ovale as noted on 2-D or Doppler imaging. AORTIC VALVE The aortic valve is calcified but opens well. Doppler and Color Flow revealed no significant aortic r egurgitation. There is no significant aortic valvular stenosis. MITRAL VALVE The mitral valve is normal in structure and function. There is no evidence of mitral valve prolapse. There is no mitral valve stenosis. Doppler and Color-flow revealed trace mitral regurgitation. TRICUSPID VALVE The tricuspid valve is normal in structure and function. Doppler and Color Flow revealed trace tricus pid regurgitation with an estimated PAP of 25 mmHg. There is no tricuspid valve stenosis. PULMONIC VALVE The pulmonic valve is not well visualized. Doppler and Color Flow revealed trace pulmonic valvular re gurgitation. GREAT VESSELS The aortic root is normal in size. The ascending aorta is normal in size. The IVC is normal in size a nd collapses >50% with inspiration. PERICARDIAL EFFUSION There is no evidence of significant pericardial effusion. Critical Notification Critical Value: No <Conclusion> The left ventricular systolic function is normal. The Ejection Fraction is 60-65%. There is normal LV segmental wall motion. Transmitral Doppler flow pattern is Grade I-abnormal relaxation pattern. Trace mitral regurgitation. Trace tricuspid regurgitation with an estimated PAP of 25 mmHg. There is no evidence of significant pericardial effusion. Signed by : Kehinde Angeles, Electronically Approved : 09/07/2019 10:12:54
== END ==
LOC: ECHO 07:55
PROVIDERS: ATTEND Internal Medicine Cardiovascular Disease
DX: I35.8 Other nonrheumatic aortic valve disorders (principal)
CPT/HCPCS: 93017; 93306

== ENCOUNTER → 2019-12-26 | Outpatient (CLI) | payer BC, MEDICARE ==
[2019-07-07 11:14] VITALS: BP 157/83
--- NOTE | 2019-12-27 17:02 | RAD ---
BILATERAL SCREENING MAMMOGRAM, 3-D History: Routine screening. Comparison: 12/22/2018, 09/28/2017, 08/22/2016, 07/13/2015. Technique: MLO and CC digital tomosynthesis (3D) images obtained. Radiologist reviewed these images on dedicated workstation. Findings: Breast Tissue Density B : There are scattered areas of fibroglandular density. There are no dominant masses, suspicious microcalcifications, or architectural distortion. IMPRESSION: No mammographic evidence of malignancy. Recommend routine screening. BI-RADS category 1: Negative. The images were reviewed with computer-aided detection. Patient information is entered into reminder system with a target due date for the next screening mammogram. Mammography is the most sensitive method for finding small breast cancers, but it does not detect them all and is not a substitute for careful clinical examination. A negative mammogram does not negate a clinically suspicious finding and should not result in delay in biopsying a clinically suspicious abnormality. "Our facility is accredited by the [employer] Mammography Program." Electronically signed by: Julio Chávez MD (12/27/2019 4:59 PM) [id number]
== END | disposition home or self-care (01) ==
LOC: MAMMO 11:59
PROVIDERS: ATTEND Family Medicine
DX: Z12.31 Encounter for screening mammogram for malignant neoplasm of breast (principal)
CPT/HCPCS: 77063; 77067

== ENCOUNTER → 2020-09-27 | Outpatient (CLI) | payer MEDICARE, OTHER ==
[2019-07-07 11:14] VITALS: BP 157/83
[~2020-09-27] MED LIST changes: +LISI10TA16 PO; -LISI10TA2 PO
--- NOTE | 2020-09-27 13:58 | KCIC ---
INDICATION: Screening for osteopenia/osteoporosis. Postmenopausal evaluation. COMPARISON: July 2008. TECHNIQUE: Bone densitometry was performed through the lumbar spine and proximal femur. IMPRESSION: Lumbar Spine: BMD: 1.1 T-Score: 0.6 Range: Decreased by 4 percent from prior. Proximal Femur: BMD: 1.1 T-Score: 1.3 Range: Normal. Decreased by 13 percent from prior. World Health Organization Criteria for Bone Density: T-Score: > -1.0: Normal Range < -1.0 to -2.5: Osteopenic Range < -2.5: Osteoporotic Range Electronically signed by: Roshan Roblero MD (09/27/2020 1:55 PM) [id number]
== END ==
LOC: KCIC DEXA 10:45
PROVIDERS: ATTEND Family Medicine
DX: M85.88 Other specified disorders of bone density and structure, other site (principal); M81.0 Age-related osteoporosis without current pathological fracture
CPT/HCPCS: 77080

== ENCOUNTER → 2021-02-20 | Outpatient (CLI) | payer OTHER ==
[2019-07-07 11:14] VITALS: BP 157/83
--- NOTE | 2021-02-20 14:22 | RAD ---
BILATERAL DIGITAL SCREENING 2-D AND 3-D MAMMOGRAM INDICATION: Routine screening. COMPARISON: 08/22/2016, 09/28/2017, 12/22/2018, 12/26/2019 Interpretation was made using CAD. FINDINGS: Breast Density: The breasts are almost entirely fatty. RIGHT BREAST: No suspicious masses, calcifications or areas of architectural distortion are seen. LEFT BREAST: No suspicious masses, calcifications or areas of architectural distortion are seen. IMPRESSION: 1. No imaging evidence of malignancy. ASSESSMENT: BI-RADS 1: Negative. RECOMMENDATION: Routine annual screening mammogram. The facility will notify the patient of the results via mail. Patient information will be entered int o the mammography reminder system with a target recall date for the next mammogram. A reminder letter will be generated by the facility. Electronically signed by: Manuel Holcomb MD (02/20/2021 2:19 PM) [email or web address]
== END ==
LOC: MAMMO 13:12
PROVIDERS: ATTEND Family Medicine
DX: Z12.31 Encounter for screening mammogram for malignant neoplasm of breast (principal)
CPT/HCPCS: 77063; 77067